=== PATIENT | female | born 1990 | race Caucasian/White ===

== ENCOUNTER 2019-06-01 23:18 | Emergency (ER) | payer MEDICAID ==
[~2019-06-01] VITALS: Ht 172.7 cm; Wt 186.9 kg
[2019-06-01 23:54] LABS: CALCIUM 8.7 mg/dL (8.5-10.1); CREATININE 1.1 mg/dL (0.6-1.3)
[2019-06-02] MEDS ORDERED: FLEXERIL PO (01:30)
[2019-06-02 01:47] VITALS: BP 121/64
== END 2019-06-02 01:47 | disposition home or self-care (01) ==
LOC: M.ERS 23:18
PROVIDERS: Emergency Medicine
DX: M62.830 Muscle spasm of back (principal); Z88.0 Allergy status to penicillin; Z88.5 Allergy status to narcotic agent; Z88.6 Allergy status to analgesic agent